=== PATIENT | male | born 1970 | race Caucasian/White ===

== ENCOUNTER 2017-12-21 16:20 | Emergency (ER) | payer OTHER ==
[~2017-12-21] VITALS: Ht 190.5 cm; Wt 95.3 kg
[~2017-12-21 16:20] MED LIST: FLEXERIL PO; IBUPROFEN 800800 M1 PO; NORCO 5-325 TA1 EACH PO; PRINIVIL20 MG PO; ZOFRAN ODT4 MG PO
[2017-12-21 17:44] VITALS: BP 161/97
== END 2017-12-21 17:44 | disposition home or self-care (01) ==
LOC: M.ERS 16:20
DX: H11.32 Conjunctival hemorrhage, left eye (principal); R51 Headache; I10 Essential (primary) hypertension; F17.210 Nicotine dependence, cigarettes, uncomplicated; Z88.0 Allergy status to penicillin; Z90.49 Acquired absence of other specified parts of digestive tract

== ENCOUNTER 2018-04-09 13:22 | Emergency (ER) | payer OTHER ==
[~2018-04-09] VITALS: Ht 190.5 cm; Wt 99.8 kg
[2018-04-09] MEDS ORDERED: BENAZEPRIL-HCT1 EA11 PO ×2 (13:31→14:54)
[2018-04-09 13:49] LABS: ABSOLUTE BASOPHILS 0.1 thou/uL (0.0-0.2); ABSOLUTE EOSINOPHILS 0.4 thou/uL (0.0-0.7); ABSOLUTE LYMPHOCYTES 3.4 thou/uL (0.8-5.3); ABSOLUTE MONOCYTES 0.9 thou/uL (0.0-1.2); ABSOLUTE NEUTROPHILS 4.2 thou/uL (1.6-8.1); BASOPHILS 1.2 %; EOSINOPHILS 4.8 %; HEMATOCRIT 46.2 % (42.0-52.0); HEMOGLOBIN 16.3 gm/dL (14.0-18.0); LYMPHOCYTES 37.8 %; MCH 31.9 pg (26.0-34.0); MCHC 35.3 g/dL (28.0-37.0); MCV 90.3 fL (80.0-100.0); MONOCYTES 9.8 %; MPV 8.5 fl. (7.2-11.1); NUCLEATED RBCS 0 /100WBC; PLATELET COUNT* 255 thou/uL (150-400); POLYS 46.4 %; RBC 5.12 mil/uL (4.50-6.00); RDW-CV 13.7 % (10.5-14.5); WBC 9.1 thou/uL (4.0-11.0)
[2018-04-09 13:54] LABS: ANION GAP 7 mmol/L (7-16); BUN 10 mg/dL (7-18); CALCIUM 8.8 mg/dL (8.5-10.1); CHLORIDE 104 mmol/L (98-107); CO2 30 mmol/L (21-32); GLUCOSE 98 mg/dL (70-99); POTASSIUM 3.7 mmol/L (3.5-5.1); SODIUM 141 mmol/L (136-145)
[2018-04-09 14:05] LABS: PROTIME 10.7 Seconds (9.20-11.50)
[2018-04-09 14:06] LABS: ALBUMIN 3.7 g/dL (3.4-5.0); ALKALINE PHOSPHATASE 81 U/L (46-116); LIPASE 169 U/L (73-393); NT-PRO BRAIN NAT PEPTIDE 132 pg/mL (<300); SGOT 16 U/L (15-37); SGPT 23 U/L (30-65); TOTAL BILIRUBIN 0.3 mg/dL (<0.1-1.0); TOTAL PROTEIN 7.2 g/dL (6.4-8.2); TROPONIN-I LEVEL <0.06 ng/mL (<0.06)
[2018-04-09] MEDS ORDERED: LISINOPRIL-HCT1 EAC2 PO (14:47)
[2018-04-09] MEDS ORDERED: CLONIDINE HCL0.1 MG PO ×2 (14:47→14:56)
[2018-04-09 15:04] VITALS: BP 145/86
--- NOTE | 2018-04-10 15:31 | EKG ---
[place] [address] ELECTROCARDIOGRAM REPORT Name: CHEKO BOOTHE RUTH ANN [facility] Maren#: [id number] Admission: 04/09/18 Attend Phys: Discharge: 04/09/18 Date of : 68 Report #: [id number] THIS REPORT FOR: //name// [facility] ED Test Date: 2018-04-09 Test Time: 13:26:01 Pat Name: CHEKO BOOTHE Department: Room: Gender: M [employer] Inspector: : [id number] Requested By: Bev Kaur Order Number: [id number] MD: Kai Buchanan Measurements Intervals [place] Rate: 70 P: 50 CA: 111 QRS: 7 QRSD: 103 T: 42 QT: 402 QTc: 434 Interpretive Statements Sinus rhythm Borderline short CA interval Baseline wander in lead(s) V5 No previous ECG available for comparison Electronically Signed On 04-10-2018 15:31:16 [employer] by Kai Buchanan [email or web address] <ELECTRONICALLY SIGNED> By: Kai Buchanan MD, [facility] 04/10/18 1531 1326 25 Kai Buchanan MD, FACC /EPI
== END 2018-04-09 15:05 | disposition home or self-care (01) ==
LOC: M.ERS 13:22
PROVIDERS: Personal Emergency Response Attendant
DX: I10 Essential (primary) hypertension (principal); Z90.49 Acquired absence of other specified parts of digestive tract; F17.200 Nicotine dependence, unspecified, uncomplicated; Z88.0 Allergy status to penicillin

== ENCOUNTER 2021-05-25 10:16 | Emergency (ER) | payer OTHER ==
[~2021-05-25] VITALS: Ht 190.5 cm; Wt 90.7 kg
[~2021-05-25 10:16] MED LIST changes: +BENAZEPRIL-HCT1 EA11 PO; +CLONIDINE HCL0.1 MG PO; +LISINOPRIL-HCT1 EAC2 PO
[2021-05-25] MEDS ORDERED: FLEXERIL PO (11:46)
[2021-05-25] MEDS ORDERED: HYDROCODON-ACE1 EAC7 PO (11:55)
[2021-05-25 11:56] VITALS: BP 176/90
== END 2021-05-25 11:57 | disposition home or self-care (01) ==
LOC: M.ERS 10:16
DX: S90.01XA Contusion of right ankle, initial encounter (principal); M25.551 Pain in right hip; M54.50 Low back pain, unspecified; I10 Essential (primary) hypertension; Z90.49 Acquired absence of other specified parts of digestive tract; Z98.890 Other specified postprocedural states; Z79.899 Other long term (current) drug therapy; Z88.0 Allergy status to penicillin; V29.49XA Motorcycle driver injured in collision with other motor vehicles in traffic accident, initial encounter; Y93.I9 Activity, other involving external motion; Y92.488 Other paved roadways as the place of occurrence of the external cause; Y99.8 Other external cause status